=== PATIENT | male | born 2000 | race African-American/Black ===

== ENCOUNTER 2023-01-30 20:37 | Emergency (ER) | payer MEDICAID ==
[~2023-01-30] VITALS: Ht 162.6 cm; Wt 56.4 kg
[2023-01-30 20:54] VITALS: BP 124/88
[2023-01-30 21:27] LABS: HEMATOCRIT. 48.8 % (42.0-52.0); HEMOGLOBIN. 16.4 g/dL (14.0-18.0); MEAN CORPUSCULAR HEMOGLOBIN 30.5 pg (28.0-32.0); MEAN CORPUSCULAR VOLUME 90.9 fL (80.0-94.0); MEAN PLATELET VOLUME 6.9 fl (7.4-10.4); PLATELET 277 x1000/uL (130-400); RED BLOOD CELL COUNT 5.37 mill/uL (4.7-6.1); RED CELL DISTRIBUTION WIDTH 14.3 % (11.6-14.6)
[2023-01-30 21:32] LABS: CHLORIDE 95 mEq/L (98-107)
[2023-01-30 22:35] LABS: PLATELET ESTIMATE NORMAL
== END 2023-01-30 22:47 | disposition left against medical advice (07) ==
LOC: ER 20:37
DX: Z53.21 Procedure and treatment not carried out due to patient leaving prior to being seen by health care provider (principal)
CPT/HCPCS: 36415; 80053; 85025; 99281